=== PATIENT | female | born 1975 | race Caucasian/White ===

== ENCOUNTER 2024-10-21 05:45 | Emergency (ER) | payer OTHER, SELFPAY ==
[2024-10-21] VITALS (11 sets, daily range): BP systolic 132–180; BP diastolic 66–89; PULSE 81–94; RESP 16–20; TEMP 37.2; O2SAT 96–100; BMI 29.7
--- NOTE | 2024-10-21 05:59 | ED.GENADULT ---
HPI - General Adult General Chief complaint: Urogenital-Female Stated complaint: Poss UTI, Migraine Time Seen by Provider: 10/21/24 05:52 History of Present Illness HPI narrative: 49-year-old female with history of recurrent migraine headaches has typical retro-orbital headache with nausea. No injury or trauma. No focal weakness or numbness. She also has painful frequent urination is concerned that she has urinary tract infection, with left-sided abdominal pain. No history of colitis or diverticulitis. Does not recall history of any kidney stones. No injury trauma new activities. Related Data Previous Rx's ?Medication ?Instructions ?Recorded cephalexin 500 mg capsule 500 mg PO QID 7 days #28 caps 10/21/24 Allergies Allergy/AdvReac Type Severity Reaction Status Date / Time No Known Drug Allergies Allergy Verified 10/21/24 06:00 Patient History Social History Smoking Status: Current every day smoker Exam Narrative Exam Narrative: GENERAL: Well-developed patient, in mild distress. HEAD: Atraumatic. Normocephalic. EYES: Pupils equal round and reactive. Extraocular motions intact. No scleral icterus. No injection or drainage. ENT: Nose without bleeding, purulent drainage. Throat without erythema, tonsillar hypertrophy or exudate. Airway patent. NECK: Trachea midline. Non tender CARDIOVASCULAR: Regular rate and rhythm without murmurs, gallops, or rubs. RESPIRATORY: Clear to auscultation. Breath sounds equal bilaterally. No wheezes, rales, or rhonchi. GASTROINTESTINAL: Some tenderness left mid and lower quadrant, nondistended, no guarding or rebound tenderness. Bowel tones normal active without rushes or tinkles. EXTREMITIES: No edema or joint tenderness. BACK: Nontender without deformity or crepitance. No flank tenderness. NEURO: AOx3. Motor functions grossly nonfocal. SKIN: No rash or erythema of visible areas Initial Vital Signs Initial Vital Signs: Vital Signs Pulse Rate 94 H 10/21/24 05:53 Respiratory Rate 20 10/21/24 05:53 Blood Pressure 145/70 H 10/21/24 05:53 Pulse Oximetry 99 10/21/24 05:53 Course Orders Ordered: Discontinued Medications Dexamethasone (Dexamethasone 10 Mg/Ml Vial) 10 mg IV NOW ONE Stop: 10/21/24 06:44 Last Admin: 10/21/24 06:58 Dose: 10 mg Documented By: TAMEKA Diphenhydramine HCl (Diphenhydramine 50 Mg/Ml Vial) 50 mg IV NOW ONE Stop: 10/21/24 05:54 Last Admin: 10/21/24 06:17 Dose: 50 mg Documented By: TAMEKA Sodium Chloride (Normal Saline 0.9%) 1,000 mls @ 1,000 mls/hr IV BOLUS ONE Stop: 10/21/24 06:52 Last Infusion: 10/21/24 07:07 Dose: Infused Documented By: Admin: 10/21/24 06:15 Dose: 1,000 mls/hr Documented By: TAMEKA Ceftriaxone Sodium 1,000 mg/ (Sodium Chloride) 100 mls @ 200 mls/hr IV NOW ONE Stop: 10/21/24 06:14 Last Infusion: 10/21/24 08:11 Dose: Infused Documented By: Admin: 10/21/24 06:58 Dose: 200 mls/hr Documented By: TAMEKA Ketorolac Tromethamine (Ketorolac 30 Mg/Ml Vial) 15 mg IV NOW ONE Stop: 10/21/24 05:54 Last Admin: 10/21/24 06:15 Dose: 15 mg Documented By: TAMEKA Prochlorperazine (Prochlorperazine 10 Mg/2 Ml Vial) 5 mg IV NOW ONE Stop: 10/21/24 05:54 Last Admin: 10/21/24 06:15 Dose: 5 mg Documented By: TAMEKA Vital Signs Vital signs: Vital Signs - 8 hr 10/21/24 05:53 10/21/24 05:53 10/21/24 06:00 Temperature 98.9 F Pulse Rate 94 H 92 H Respiratory Rate 20 16 Blood Pressure 145/70 H 145/70 H Pulse Oximetry 99 99 Oxygen Delivery Method Room Air 10/21/24 06:00 10/21/24 06:15 10/21/24 06:21 Temperature Pulse Rate 92 H 91 H 82 Respiratory Rate 20 Blood Pressure 145/70 H Pulse Oximetry 98 98 Oxygen Delivery Method Room Air Room Air 10/21/24 06:21 Temperature Pulse Rate Respiratory Rate Blood Pressure 139/86 Pulse Oximetry Oxygen Delivery Method Medical Decision Making Lab Data Lab results reviewed: Yes I reviewed the patient's lab results. Lab results narrative: Urine suspicious for infection, urine culture triggered by protocol. Labs: Lab Results 10/21/24 Range/Units 05:30 Urine Color Yellow Urine Appearance Slightly cloudy Urine pH 8.0 (4.5-8.0) Ur Specific [place] 1.010 (1.000-1.035) Urine Protein 1+ H (Negative) Urine Glucose (UA) Negative (Negative) g/dL Urine Ketones Negative (NEGATIVE) Urine Occult Blood 2+ H (Negative) Urine Nitrate Positive H (Negative) Urine Bilirubin Negative (NEGATIVE) Urine Urobilinogen 4.0 H (0.2) E.U./dL Ur Leukocyte Esterase Negative (NEGATIVE) Urine RBC 5-10/hpf H (0-5/HPF) Urine WBC 30-100/hpf H (0-5/HPF) Ur Squamous Epith Cells 5-10 /hpf H (0-5/HPF) Ur Renal Epithelial Cell 0-1/hpf (0-1/HPF) Urine Bacteria Many (>30) H (None) Urine Mucus 1+ H (Negative) Ur Culture Indicated? Specimen cultured Vol Urine Centrifuged 10ml (spun) Urine Test Negative (Negative) MDM Narrative Medical decision making narrative: Symptoms of typical migraine headache, retro orbital, nontoxic appearing, no focal neuro findings. IV fluid bolus, IV Compazine, IV Toradol, IV Benadryl. Also has symptoms UTI, urinalysis suspicious for infection. Urine culture pending per protocol. IV ceftriaxone for UTI coverage. Afebrile, sirs screen negative. CT abdomen and pelvis showed no acute process, possible renal cyst left kidney superior medial cortex, further workup as an outpatient. See radiology report. Headache symptoms improved after cocktail above. No obstructing stone or acute process on CT abdomen and pelvis imaging. Discharged home with family. Prescription for further antibiotics sent to your pharmacy for UTI coverage. Advised recheck with PCP next couple of days. Return precautions discussed. Discharge Plan Departure Patient Disposition: Home Clinical Impression: Urinary tract infection, Headache Activity Restrictions/Additional Instructions: UTI symptoms, urinalysis suspicious for urine infection, urine culture pending. IV ceftriaxone antibiotic given. Oral antibiotic prescription sent to your pharmacy. Take antibiotics as directed. Drink plenty of fluids. You also had headache, history of migraine headaches. IV Compazine and Benadryl and Toradol were given, symptoms improved. Take Tylenol and or Motrin as needed for headache pains if his symptoms persist or recur. Drink plenty of fluids. Take antibiotics for urine infection as directed for the full course. Recheck in the next couple of days review symptoms with your regular doctor and to check the results of your urine culture. Return to this/nearest emergency department for any change worsening symptoms or any concerns prior. CT abdomen and pelvis showed no acute changes. Small lesion noted left kidney, possible cyst. Further workup can be pursued as an outpatient. Prescriptions: New cephalexin 500 mg capsule 500 mg PO QID 7 Days Qty: 28 0RF Stand Alone Forms: Patient Portal/API
--- NOTE | 2024-10-21 06:01 | DI.CT.S_ITS ---
PROCEDURE: CT ABDOMEN PELVIS WO CON INDICATIONS: left abd pain TECHNIQUE: CT of the abdomen and pelvis was obtained without intravenous contrast. Coronal and sagittal reformats were performed. For radiation dose reduction, the following was used: automated exposure control, adjustment of mA and/or kV according to patient size. COMPARISON: None. FINDINGS: Image quality: Diagnostic. Lower Chest: No significant findings. ABDOMEN: Liver: No contour-deforming mass. Gallbladder: No radiopaque gallstones or wall thickening. Biliary ducts: No biliary dilation. Pancreas: No ductal dilation. Spleen: Size is within normal limits. Adrenal Glands: No adrenal nodules. Kidneys and Ureters: Tiny punctate nonobstructing bilateral renal stones. No hydronephrosis. No contour-deforming mass. Oval hypodensity in the medial aspect of superior pole of the left kidney likely represents a cyst. This measures of approximately 3 cm in size. Bilateral ureters are normal in course and caliber. No ureteral stones. Stomach and Bowel: Normal colonic caliber, without significant wall thickening. Normal appendix. No evidence for small bowel obstruction or associated inflammatory changes. There is a 4.7 x 4.2 cm fat attenuation lesion within the medial wall of the cecum. This likely represents a lipoma. This is seen on axial image 77/series 2. Peritoneum: No abnormal intraperitoneal fluid. No free air. Ventral Wall: No significant hernia. Abdominal Nodes: No retroperitoneal or mesenteric adenopathy by size criteria. Vessels: Aorta and inferior vena cava are normal in size. PELVIS: Pelvic Organs: Unremarkable. Small amount of pelvic free fluid likely physiologic. Bladder: Unremarkable. Pelvic Nodes: No enlarged lymph nodes. Miscellaneous: No inguinal hernias are seen. Bones: No aggressive osseous abnormality. Visualized osseous structures appear intact without acute fracture or focal destructive lesion. No acute compression fractures of the imaged spine. IMPRESSION: 1. CT abdomen and pelvis without acute abnormalities. 2. Tiny punctate nonobstructing bilateral renal stones without hydronephrosis. 3. Prominent appendix without secondary findings of acute appendicitis. 4. A 3 cm hypodense lesion off the superior, medial cortex of the left kidney likely representing a cyst. However, recommend outpatient renal ultrasound to confirm cystic versus solid. 5. Incidental note of a 4.7 cm lipoma within the medial wall of the cecum. 6. Other chronic/non-acute findings as above. No significant discrepancy with the rubber curer radiology preliminary report. Dictated by: Ashish Guajardo M.D. on 10/21/2024 at 7:03 Approved by: Ashish Guajardo M.D. on 10/21/2024 at 7:10
[2024-10-21 06:05] LABS: Bilirubin Urine UA NEGATIVE (NEGATIVE); Color Urine UA YELLOW; Glucose Urine UA NEGATIVE (Negative); Ketones Urine UA NEGATIVE (NEGATIVE); Leukocyte Esterase Urine UA NEGATIVE (NEGATIVE); Nitrite Urine UA POSITIVE (Negative); Occult Blood Urine UA 2+ (Negative); Protein Urine UA 1+ (Negative); Specific Gravity Urine UA 1.010 (1.000-1.035); Urobilinogen Urine UA 4.0 E.U./dL (0.2)
[2024-10-21 06:08] LABS: Appearance Urine UA Slightly Cloudy; pH Urine UA 8.0 (4.5-8.0)
[2024-10-21 06:09] LABS: Culture Indicated Urine Specimen Cultured
[2024-10-21] MEDS: KETOROLAC 30 MG/ML VIAL 15 MG IV (06:15)
[2024-10-21] MEDS: SODIUM CHLORIDE 0.9% 1,000 ML 1000 ML IV (06:15)
[2024-10-21] MEDS: PROCHLORPERAZINE 10 MG/2 ML VIAL 5 MG IV (06:15)
[2024-10-21] MEDS: diphenhydrAMINE 50 MG/ML VIAL IV (06:17)
[2024-10-21] MEDS: DEXAMETHASONE 10 MG/ML VIAL IV (06:58)
== END 2024-10-21 09:08 | disposition home or self-care (01) ==
PROVIDERS: Emergency Provider Emergency Medicine
DX: N39.0 Urinary tract infection, site not specified (principal); R51.9 Headache, unspecified
CPT/HCPCS: 74176; 81001; 81025; 87077; 87086; 87186; 96365; 96375; 99283; 99284; J0696; J0780; J1100; J1200; J1885